=== PATIENT | female | born 1975 | race Caucasian/White ===

== ENCOUNTER 2020-07-20 22:00 | Emergency (ER) | payer BC ==
[2020-07-20] MEDS ORDERED: NORMAL SALINE 1000 ML 1,000 ML IV ONE (22:38)
[2020-07-20] MEDS ORDERED: ACETAMINOPHEN 325 MG TABLET PO ONE (22:38)
[2020-07-20 22:56] LABS: APPEARANCE,URINE CLEAR; BILIRUBIN,URINE NEGATIVE (NEGATIVE); COLOR,URINE STRAW; GLUCOSE, URINE NEGATIVE (NEGATIVE); KETONES,URINE TRACE mg/dL (NEGATIVE); LEUKOCYTE ESTERASE,URINE NEGATIVE (NEGATIVE); NITRITE,URINE NEGATIVE (NEGATIVE); PROTEIN,URINE NEGATIVE (NEGATIVE); URINE SPECIFIC GRAVITY 1.009; UROBILINOGEN,URINE NEGATIVE mg/dL (<2.0)
[2020-07-20 23:43] LABS: ABSOLUTE EOSINOPHILS # (AUTO) 0.1 10^3/uL (0.0-0.6); ABSOLUTE LYMPHOCYTES (AUTO) 1.6 10^3/uL (0.5-4.7); ABSOLUTE MONOCYTES (AUTO) 0.5 10^3/uL (0.1-1.4); ABSOLUTE NEUT (AUTO) 4.4 10^3/uL (1.7-8.2); BASOPHILS % (AUTO) 0.6 % (0-2); HEMATOCRIT 36.9 % (36.0-47.0); HEMOGLOBIN 13.2 g/dL (12.0-15.5); MEAN CORPUSCULAR HEMOGLOBIN 31.5 pg (27.0-33.4); MEAN CORPUSCULAR HGB CONC 35.7 g/dL (32.0-36.0); MEAN CORPUSCULAR VOLUME 88 fl (80-97); MONOCYTES % (AUTO) 7.3 % (3-13); PLATELET COUNT 206 10^3/uL (150-450); RED BLOOD COUNT 4.17 10^6/uL (3.72-5.28); RED CELL DISTRIBUTION WIDTH 13.8 % (11.5-14.0); SEGMENTED NEUTROPHILS % (AUTO) 66.1 % (42-78); TOTAL CELLS COUNTED % (AUTO) 100 %; WHITE BLOOD COUNT 6.7 10^3/uL (4.0-10.5)
[2020-07-21 00:04] LABS: ALBUMIN 3.9 g/dL (3.5-5.0); ALKALINE PHOSPHATASE 64 U/L (38-126); ANION GAP 6 (5-19); ASPARTATE AMINO TRANSFERASE 24 U/L (14-36); BILIRUBIN,DIRECT 0.2 mg/dL (0.0-0.4); BILIRUBIN,TOTAL 0.4 mg/dL (0.2-1.3); BLOOD UREA NITROGEN 17 mg/dL (7-20); CALCIUM 8.9 mg/dL (8.4-10.2); CARBON DIOXIDE 27 mmol/L (22-30); CHLORIDE 105 mmol/L (98-107); GLUCOSE 112 mg/dL (75-110); POTASSIUM 3.6 mmol/L (3.6-5.0); TOTAL PROTEIN 6.5 g/dL (6.3-8.2)
--- NOTE | 2020-07-21 00:17 | RADIOLOGY REPORT (SQ) ---
EXAM DESCRIPTION: CT HEAD WITHOUT IV CONTRAST COMPLETED DATE/TME: 07/20/2020 22:38 CLINICAL HISTORY: CURRY, weakness COMPARISON: None available TECHNIQUE: Axial CT of the head obtained from the skull apex to the skull base without contrast. FINDINGS: No acute intracranial hemorrhage identified. No mass, mass effect, shift of the midline, abnormal extra-axial fluid collection or CT evidence of acute ischemic change identified. The ventricular system is unremarkable. No acute abnormalities of the supratentorial white matter, basal ganglia, cerebellum, or brainstem. Mucosal thickening of the paranasal sinuses. Mastoid air cells are well aerated. No skull fracture identified. Visualized orbits and globes are unremarkable. IMPRESSION: 1. No acute intracranial abnormality identified. This exam was performed according to our departmental dose-optimization program, which includes automated exposure control, adjustment of the mA and/or kV according to patient size and/or use of iterative reconstruction technique.
--- NOTE | 2020-07-21 00:37 | ER Document Report ---
ED General - General Mode of Arrival: Medic Information source: Patient - HPI Onset: This evening Onset/Duration: Gradual Quality of pain: Other - Heaviness Pain Level: 3 Associated symptoms: Chest pain, Headache, Other - Difficulty breathing. denies: Nonproductive cough, Productive cough, Nausea, Vomiting, Shortness of breath Exacerbated by: Denies Relieved by: Denies Similar symptoms previously: No Recently seen / treated by doctor: No <BULMARO SPANN - Last Filed: 07/21/20 01:51> <EMA WEISS - Last Filed: 07/21/20 03:37> - General Chief Complaint: Chest Pain Stated Complaint: HEADACHE Time Seen by Provider: 07/20/20 22:17 Notes: Patient states that she developed a headache around 9 AM. Patient states she took some Midol around 630 and it resolved her headache. Patient states she was out this evening with friends and she felt faint and had a heaviness in her chest. Patient states she had some difficulty breathing although was not short of breath at this time. Patient states that the heaviness started around 8 PM. Patient denies any cough. Patient states that the time she was nauseated. Patient denies any vomiting or diarrhea. Patient states that she had generalized weakness in her extremities and she did not feel like she could walk. Patient states that EMS was called and they did give her Zofran which helped her nausea symptoms. Patient presently denies any headache or nausea at this time although reports chest heaviness that is a 3 out of 5 scale. (BULMARO SPANN) - Related Data Allergies/Adverse Reactions: Iodine and Iodide Containing Produc Allergy (Verified 07/20/20 22:32) Past Medical History - General Information source: Patient - Social History Smoking Status: Never Smoker Chew tobacco use (# tins/day): No Frequency of alcohol use: Rare Drug Abuse: None Occupation: Welding Machine Operator [employer] Family History: Reviewed & Not Pertinent Patient has homicidal ideation: No - Medical History Medical History: Negative Surgical Hx: Negative <BULMARO SPANN - Last Filed: 07/21/20 01:51> Review of Systems - Review of Systems Constitutional: No symptoms reported. denies: Fever EENT: No symptoms reported Cardiovascular: Chest pain, Other - [place] faint Respiratory: Other - Difficulty breathing. denies: Cough, Short of breath Gastrointestinal: Nausea. denies: Abdominal pain, Diarrhea, Vomiting Genitourinary: No symptoms reported Female Genitourinary: No symptoms reported Musculoskeletal: No symptoms reported. denies: Back pain Skin: No symptoms reported Hematologic/Lymphatic: No symptoms reported Neurological/Psychological: Weakness - To extremities bilaterally, Headaches <BULMARO SPANN - Last Filed: 07/21/20 01:51> Physical Exam <MARIA INESBULMARO HERNANDEZ - Last Filed: 07/21/20 01:51> - Vital signs Vitals: Temp 97.6 F 07/20/20 22:00 - Notes Notes: PHYSICAL EXAMINATION: GENERAL: Well-appearing and in no acute distress. HEAD: Atraumatic, normocephalic. EYES: sclera anicteric, conjunctiva are normal. ENT: nares patent. Moist mucous membranes. NECK: Normal range of motion, supple without lymphadenopathy LUNGS: CTAB and equal. No wheezes rales or rhonchi. HEART: Regular rate and rhythm without murmurs ABDOMEN: Soft, nontender, normal bowel sounds, no guarding. EXTREMITIES: Normal range of motion, no pitting edema. Normal strength and muscle tone bilaterally. BACK: No midline tenderness, no step-off or deformity. No CVA tenderness NEUROLOGICAL: Cranial nerves grossly intact. Normal speech. PSYCH: Normal mood, normal affect. SKIN: Warm, Dry, normal turgor, no rashes or lesions noted (MARIA INESBULMARO) Course - Laboratory Result Diagrams: 07/20/20 23:30 07/20/20 23:30 - Diagnostic Test Radiology reviewed: Reports reviewed <BULMARO SPANN - Last Filed: 07/21/20 01:51> - Laboratory Result Diagrams: 07/20/20 23:30 07/20/20 23:30 <EMA WEISS - Last Filed: 07/21/20 03:37> - Re-evaluation Re-evalutation: 07/21/20 00:37 Patient states headache pain is completely resolved at this time as his chest pressure. Patient complains only of feeling generalized weakness. Vital signs stable at this time. 07/21/20 01:51 Report and handoff given to Ema Weiss NP (BULMARO SPANN) 07/21/20 03:28 Repeat troponin is negative. Patient will be prescribed Zofran for nausea, she will be discharged home at this time. (EMA WEISS) - Vital Signs Vital signs: Temp Pulse Resp BP Pulse Ox 97.9 F 61 14 102/61 98 07/20/20 22:16 07/20/20 22:16 07/21/20 03:01 07/21/20 03:01 07/21/20 03:01 - Laboratory Laboratory results interpreted by me: 07/20/20 07/20/20 22:44 23:30 Glucose 112 H Urine Ketones TRACE H Urine Blood LARGE H Discharge <BULMARO SPANN - Last Filed: 07/21/20 01:51> <EMA WEISS - Last Filed: 07/21/20 03:37> - Discharge Clinical Impression: Weakness Chest pain Qualifiers: Chest pain type: unspecified Qualified Code(s): R07.9 - Chest pain, unspecified Headache Qualifiers: Headache type: unspecified Headache chronicity pattern: unspecified pattern Intractability: not intractable Qualified Code(s): R51 - Headache Condition: Stable Disposition: HOME, SELF-CARE Additional Instructions: Your work-up today was reassuring. We did not find any life-threatening cause of your symptoms today. I do feel that it is important for you to follow-up with a primary care provider regarding today's visit. I have provided you with the name and contact information for 1 in the local area if you do not have one. Please call and schedule an appointment with them within the next 2 to 3 days. Return to the emergency department with any new or worsening symptoms. Prescriptions: Ondansetron [Zofran Odt 4 mg Tablet] 1 - 2 tab PO Q4H PRN #15 tab.rapdis PRN Reason: For Nausea/Vomiting Forms: Return to Work
--- NOTE | 2020-07-21 00:51 | RADIOLOGY REPORT (SQ) ---
EXAM DESCRIPTION: XR CHEST 1 VIEW COMPLETED DATE/TME: 07/20/2020 22:37 CLINICAL HISTORY: 45 years, Female, cp COMPARISON: None. NUMBER OF VIEWS: 1 TECHNIQUE: Portable chest LIMITATIONS: None. FINDINGS: Heart size normal. Lungs clear. No pneumothorax IMPRESSION: Negative chest copyright 2011 [employer]- All Rights Reserved
[2020-07-21] MEDS ORDERED: ASPIRIN 81 MG TABLET, CHEWABLE PO ONE (01:15)
[2020-07-21 03:50] VITALS: BP 115/80
--- NOTE | 2020-07-21 19:09 | EKG REPORT ---
SEVERITY:- NORMAL ECG - SINUS RHYTHM : Confirmed by: Katherine Lopez 21-Jul-2020 19:08:36
== END 2020-07-21 03:54 | disposition home or self-care (01) ==
LOC: ER 22:00
DX: R07.89 Other chest pain (principal); R51 Headache; R53.1 Weakness; R06.00 Dyspnea, unspecified; R11.0 Nausea
CPT/HCPCS: 93005; 99285; 96360; 36415; 83735; 84443; 84703; 85025; 80053; 81001; 84484; 71045; 70450; 93010; J7030